=== PATIENT | female | born 1995 | race Caucasian/White ===

== ENCOUNTER 2019-04-09 11:53 | Emergency (ER) | payer BC ==
[2014-08-01 11:27] VITALS: Wt 86.2 kg
[~2019-04-09 11:53] MED LIST: ACE3 PO; ACET-2327 PO; ALBU8.5H12 IH; AMO250 PO; AZI250 PO; Acetaminophen/Codeine PO; BACDS FT; BENZ200C38 PO; CEF300 PO; CEP500 PO; CEPH500C24 PO; CIP500 PO; DOXY-179 PO; DOXY150T6 PO; GUALA600 PO; HYDR-3078 PO; HYDR-653 PO; HYDR473S4 PO; IBU800 PO; IBUP800T37 PO; Ibuprofen PO; KET10 PO; LANS30CA70 PO; LEVO-85 PO; LEVO1IUD2 VG; LOPE1LIQ49 PO; LOR5 PO; LOR5/325 PO; METR500T15 PO; MONESSA; NAPR-1043 PO; NO MEDS; NO ROUTINE MEDS; NO RTN MEDS; ONDA4TAB PO; ONDA8TAB94 PO; OXYC-865 PO; PER PO; PHEN118S56 PO; PHENA100 PO; PRE10 PO; PRE20 PO; PREN-102 PO; PREN-85 PO; PRO25 PO; ROBC PO; TAMS0.4C25 PO; TRA50 PO; TYLENOL; [UNRECOGNIZED DRUG - CODE] PO
--- NOTE | 2019-04-09 11:56 | ER Report ---
History and Physical Time Seen By MD: 11:54 HPI/ROS CHIEF COMPLAINT: Transient right eye vision disturbance, numbness HISTORY OF PRESENT ILLNESS: Patient is a 23-year-old female here with complaints of headache, transient right eye visual disturbance which is resolved, residual numbness. Patient does report having a history of migraines however she reports that she has never had vision loss associated with her headaches. Patient is afebrile, neck is supple with no rigidity, denies recent illnesses, fevers or chills. Patient is hemodynamically stable at time of evaluation, afebrile REVIEW OF SYSTEMS: Constitutional: No fever, no chills. Eyes: Transient right vision loss. ENT: No sore throat. Cardiovascular: No chest pain, no palpitations. Respiratory: No cough, no shortness of breath. Gastrointestinal: No abdominal pain, no vomiting. Genitourinary: No hematuria. Musculoskeletal: No back pain. Skin: No rashes. Neurological: Paresthesias without motor weakness Allergies: Coded Allergies: Penicillins (Verified Allergy, Intermediate, NAUSEA/VOMITING, 08/31/17) venom-wasp (Verified Allergy, Mild, major swelling at sting, 08/31/17) Uncoded Allergies: HAY FEVER (Allergy, Mild, 05/09/10) BLUE CHEESE (Allergy, Unknown, ANAPHYLAXIS, 04/11/14) Home Meds Discontinued Scripts Ondansetron (ZOFRAN ODT) 4 Mg Tab.rapdis, 4 MG PO Q6H PRN for NAUSEA/VOMITING, #20 TAB.SRINIVAS 0 Refills Prov:BISI DOWELL MD 08/31/17 Oxycodone Hcl/Acetaminophen (PERCOCET 5-325 MG TABLET) 1 Each Tablet, 1 EACH PO Q4H PRN for PAIN, #15 TAB 0 Refills Prov:BISI DOWELL MD 08/31/17 Metronidazole (METRONIDAZOLE) 500 Mg Tablet, 500 MG PO TID, #30 TAB 0 Refills Prov:BISI DOWELL MD 08/31/17 Levofloxacin 500 Mg Tab (LEVAQUIN 500 MG TAB) 500 Mg Tablet, 500 MG PO QDAY, #10 TAB 0 Refills Prov:BISI DOWELL MD 08/31/17 Hydrocodone Bit/Acetaminophen (NORCO 5-325 TABLET) 1 Each Tablet, 1 EACH PO Q4- 6H PRN for PAIN, #12 TAB Prov:ARVIN HERNANDEZ [employer] 06/15/16 Tamsulosin Hcl (FLOMAX) 0.4 Mg Cap.er.24h, 0.4 MG PO DAILY, #14 CAP Prov:ARVIN HERNANDEZ [employer] 06/15/16 Ibuprofen (IBUPROFEN) 800 Mg Tablet, 1 TAB PO Q8H, #30 TAB Prov:ARVIN HERNANDEZ [employer] 11/29/15 Hx Smoking: Yes Smoking Status: Current: Every Day Smoker Exposure to Second Hand Smoke?: Yes Hx Substance Use Disorder: No Hx Alcohol Use: No Constitutional Vital Sign - Last 24 Hours 04/09/19 04/09/19 04/09/19 11:58 12:00 12:30 Temp 97.9 Pulse 81 79 74 Resp 20 21 18 B/P (MAP) 133/66 129/79 (96) 122/76 (91) Pulse Ox 97 91 95 Physical Exam General Appearance: The patient is alert, has no immediate need for airway protection and no signs of toxicity. Anxious appearing Eyes: Pupils equal and round no pallor or injection. EOMI intact ENT, Mouth: Mucous membranes are moist. Respiratory: There are no retractions, lungs are clear to auscultation. Cardiovascular: Regular rate and rhythm. Gastrointestinal: Abdomen is soft and non tender, no masses, bowel sounds normal. Neurological: No focal neurological deficits on examination, intact motor strength in all extremities, EOMI intact, cranial nerves intact Skin: Warm and dry, no rashes. Musculoskeletal: Neck is supple non tender. Extremities are nontender, nonswollen and have full range of motion. DIFFERENTIAL DIAGNOSIS: After history and physical exam differential diagnosis was considered for headache including but not limited to subarachnoid hemorrhage, migraine headache, tension headache and infectious causes such as m eningitis, pharyngitis and sinusitis. Medical Decision Making Data Points Result Diagram: 04/09/19 1204 04/09/19 1204 Laboratory Hematology Test 04/09/19 12:04 Red Blood Count 4.86 M/uL (4.17-5.56) Mean Corpuscular Volume 86.7 fL (80.0-96.0) Mean Corpuscular Hemoglobin 30.0 pg (26.0-33.0) Mean Corpuscular Hemoglobin Concent 34.6 g/dL (32.0-36.0) Red Cell Distribution Width 12.9 % (11.5-14.5) Mean Platelet Volume 7.6 fL (7.2-11.1) Neutrophils (%) (Auto) 69.2 % (39.4-72.5) Lymphocytes (%) (Auto) 22.7 % (17.6-49.6) Monocytes (%) (Auto) 6.3 % (4.1-12.4) Eosinophils (%) (Auto) 0.8 % (0.4-6.7) Basophils (%) (Auto) 1.0 % (0.3-1.4) Nucleated RBC Relative Count (auto) 0.0 /100WBC Neutrophils # (Auto) 6.3 K/uL (2.0-7.4) Lymphocytes # (Auto) 2.1 K/uL (1.3-3.6) Monocytes # (Auto) 0.6 K/uL (0.3-1.0) Eosinophils # (Auto) 0.1 K/uL (0.0-0.5) Basophils # (Auto) 0.1 K/uL (0.0-0.1) Nucleated RBC Absolute Count (auto) 0.00 K/uL Erythrocyte Sedimentation Rate 11 mm/HOUR (0-20) Sodium Level 140 mmol/L (137-145) Potassium Level 3.7 mmol/L (3.5-5.0) Chloride Level 106 mmol/L (98-107) Carbon Dioxide Level 19 mmol/L (22-31) Blood Urea Nitrogen 14 mg/dl (7-18) Creatinine 0.80 mg/dl (0.52-1.04) Glomerular Filtration Rate Calc > 60.0 Random Glucose 113 mg/dl (75-110) Calcium Level 9.8 mg/dl (8.4-10.2) Total Bilirubin 1.4 mg/dl (0.2-1.3) Aspartate Amino Transf (AST/SGOT) 22 U/L (0-35) Alanine Aminotransferase (ALT/SGPT) 34 U/L (0-56) Alkaline Phosphatase 67 U/L (0-126) C-Reactive Protein < 0.5 mg/dl (<1.0) Total Protein 8.1 g/dl (6.3-8.2) Albumin 4.7 g/dl (3.5-5.0) Human Chorionic Gonadotropin, Qual Negative (NEGATIVE) Chemistry Test 04/09/19 12:04 White Blood Count 9.1 k/uL (4.5-11.0) Red Blood Count 4.86 M/uL (4.17-5.56) Hemoglobin 14.5 g/dL (12.0-16.0) Hematocrit 42.1 % (34.0-47.0) Mean Corpuscular Volume 86.7 fL (80.0-96.0) Mean Corpuscular Hemoglobin 30.0 pg (26.0-33.0) Mean Corpuscular Hemoglobin Concent 34.6 g/dL (32.0-36.0) Red Cell Distribution Width 12.9 % (11.5-14.5) Platelet Count 375 K/uL (150-450) Mean Platelet Volume 7.6 fL (7.2-11.1) Neutrophils (%) (Auto) 69.2 % (39.4-72.5) Lymphocytes (%) (Auto) 22.7 % (17.6-49.6) Monocytes (%) (Auto) 6.3 % (4.1-12.4) Eosinophils (%) (Auto) 0.8 % (0.4-6.7) Basophils (%) (Auto) 1.0 % (0.3-1.4) Nucleated RBC Relative Count (auto) 0.0 /100WBC Neutrophils # (Auto) 6.3 K/uL (2.0-7.4) Lymphocytes # (Auto) 2.1 K/uL (1.3-3.6) Monocytes # (Auto) 0.6 K/uL (0.3-1.0) Eosinophils # (Auto) 0.1 K/uL (0.0-0.5) Basophils # (Auto) 0.1 K/uL (0.0-0.1) Nucleated RBC Absolute Count (auto) 0.00 K/uL Erythrocyte Sedimentation Rate 11 mm/HOUR (0-20) Glomerular Filtration Rate Calc > 60.0 Calcium Level 9.8 mg/dl (8.4-10.2) Total Bilirubin 1.4 mg/dl (0.2-1.3) Aspartate Amino Transf (AST/SGOT) 22 U/L (0-35) Alanine Aminotransferase (ALT/SGPT) 34 U/L (0-56) Alkaline Phosphatase 67 U/L (0-126) C-Reactive Protein < 0.5 mg/dl (<1.0) Total Protein 8.1 g/dl (6.3-8.2) Albumin 4.7 g/dl (3.5-5.0) Human Chorionic Gonadotropin, Qual Negative (NEGATIVE) EKG/Imaging Imaging FACILITY: [facility] - [place] PATIENT NAME: Kaila Pacheco : 1995 MR: [id number] V: [id number] EXAM DATE: ORDERING PHYSICIAN: ARCENIO SCHILLING TECHNOLOGIST: Location: [facility] - [place] Patient: Kaila Pacheco : 1995 Visit/Account:[id number] Date of Sevice: 04/09/2019 EXAMINATION: CT head without IV contrast HISTORY: Headache. COMPARISON: CT head from 05/20/2010. TECHNIQUE: Contiguous axial images were obtained from the skull base to the vertex without intravenous contrast. Sagittal and coronal reformatted images are also submitted. One of the following dose optimization techniques was utilized in the performance of this exam: Automated exposure control; adjustment of the mA and/or kV according to the patient's size; or use of an iterative reconstruction technique. Specific details can be referenced in the facility's radiology CT exam operational policy. FINDINGS: Brain volume: Normal. Ventricles: Normal. Acute ischemic changes: None. Hemorrhage: No acute intracranial hemorrhage. Masses/edema: None. Carrera-white: Negative. White matter: Normal. Vessels: Negative. Extra-axial: Incidental coarse calcification along the left tentorium is slightly larger. Calvarium/scalp: Negative. Skull base/visualized face: Negative. Visualized sinuses/orbits: Negative. IMPRESSION: No acute hemorrhage or intracranial mass lesion. No CT evidence of acute infarct. ED Course/Re-evaluation ED Course Patient is a 23-year-old female here with complaints of headache, transient r ight vision loss with complete yarsanism, paresthesias. Electrolytes are stable, there is no leukocytosis, ESR, CRP are negative making temporal arteritis and unlikely culprit. Patient does have a history of migraines making atypical migraine more likely. Patient was given migraine cocktail including a normal saline bolus, Benadryl, magnesium, Decadron, Reglan. Patient had moderate improvement of symptoms. CT imaging of the head was completed and showed no acute intracranial findings. Patient was hemodynamically stable at time of discharge. Return precautions provided. Close PCP follow-up recommended. Decision to Disposition Date: Apr 09, 2019 Decision to Disposition Time: 13:12 Depart Departure Latest Vital Signs Vital Signs Date Time Temp Pulse Resp B/P (MAP) Pulse Ox O2 Delivery O2 Flow Rate FiO2 04/09/19 12:30 74 18 122/76 (91) 95 04/09/19 11:58 97.9 Impression: Primary Impression: Headache Condition: Improved Disposition: HOME OR SELF-CARE Referrals: ROSIE READ MD (PCP) Patient Instructions: Acute Headache (ED) Additional Instructions: Please drink plenty of water. Please take your medications as prescribed. Please return promptly if you develop neurological deficits, fevers, neck stiffness, inability to keep down food or fluids. Please follow-up with your family doctor in the next 3-5 days. ARCENIO SCHILLING DO Apr 09, 2019 11:56
[2019-04-09] MEDS ORDERED: NS(*) 0.9% 1000 ML BAG 1,000 ML IV ONE (12:07)
[2019-04-09] MEDS ORDERED: MAGNESIUM SUL* 2 GM/50 ML IVPB 50 ML IVPB ONE (12:10)
[2019-04-09] MEDS ORDERED: METOCLOPRAMIDE 10 MG/2 ML SDV IVP ONE (12:10)
[2019-04-09] MEDS ORDERED: KETOROLAC 30 MG/ML VIAL IVP ONE (12:10)
[2019-04-09] MEDS ORDERED: DEXAMETHASONE SOD PHOS 10MG/ML IVP ONE (12:10)
[2019-04-09 12:15] LABS: PLATELET COUNT, AUTOMATED 375 K/uL (150-450)
[2019-04-09 12:30] VITALS: BP 122/76
--- NOTE | 2019-04-09 13:01 | RADIOLOGY IMAGING REPORT ---
FACILITY: [facility] PATIENT NAME: Kaila Pacheco : 1995 MR: [id number] V: [id number] EXAM DATE: ORDERING PHYSICIAN: ARCENIO SCHILLING TECHNOLOGIST: Location: [facility] - [place] Patient: Kaila Pacheco : 1995 Visit/Account:[id number] Date of Sevice: 04/09/2019 EXAMINATION: CT head without IV contrast HISTORY: Headache. COMPARISON: CT head from 05/20/2010. TECHNIQUE: Contiguous axial images were obtained from the skull base to the vertex without intraven ous contrast. Sagittal and coronal reformatted images are also submitted. One of the following dose optimization techniques was utilized in the performance of this exam: Autom ated exposure control; adjustment of the mA and/or kV according to the patient's size; or use of an i terative reconstruction technique. Specific details can be referenced in the facility's radiology C T exam operational policy. FINDINGS: Brain volume: Normal. Ventricles: Normal. Acute ischemic changes: None. Hemorrhage: No acute intracranial hemorrhage. Masses/edema: None. Carrera-white: Negative. White matter: Normal. Vessels: Negative. Extra-axial: Incidental coarse calcification along the left tentorium is slightly larger. Calvarium/scalp: Negative. Skull base/visualized face: Negative. Visualized sinuses/orbits: Negative. IMPRESSION: No acute hemorrhage or intracranial mass lesion. No CT evidence of acute infarct. Report Dictated By: Nancy Parson MD at 04/09/2019 12:53 PM Report E-Signed By: Nancy Parson MD at 04/09/2019 12:56 PM [id number]
== END 2019-04-09 13:43 | disposition home or self-care (01) ==
LOC: ER 12:00
DX: R51 Headache (principal)
CPT/HCPCS: 36416; 70450; 82948; 84703; 85025; 85651; 86140; 96365; 96375; 99284; J1100; J1885; J2765; J3475; J7030; Q0163; 82040; 82247; 82310; 82374; 82435; 82565; 82947; 84075; 84132; 84155; 84295; 84450; 84460; 84520